=== PATIENT | male | born 1985 | race Two or more races ===

== ENCOUNTER 2020-02-27 18:10 | Emergency (ER) | payer SELFPAY ==
[~2020-02-27] VITALS: Ht 177.8 cm; Wt 88.0 kg
[2020-02-27 18:20] VITALS: BP 142/85
--- NOTE | 2020-02-27 19:38 | NUR ---
Assumed care of patient. [employer] services used. C/O occasional subjective fever in the middle of the night. Reports one episode of ABD pain on Monday. Denies SOB, cough, HARRIS, N/V/D, and ABD pain at this time. NAD. VSS. Will continue to monitor.
--- NOTE | 2020-02-27 19:40 | NUR ---
Patient states [place] from [place] approxiately 1 month ago. He is here visiting family. Per patient, he has been unable to go back to [place] d/t current travel restrictions.
--- NOTE | 2020-02-27 20:01 | NUR ---
Resting in [facility]. No needs.
[2020-02-27] MEDS ORDERED: AZITHROMYCIN 500 MG TABLET ONE (20:36)
--- NOTE | 2020-02-27 20:56 | NUR ---
Patient/Caregiver given discharge instructions and they have confirmed that they understand the instructions. Patient ambulatory with steady gait.
[2020-02-27] MEDS ORDERED: AZITHROMYCIN 500 MG TABLET PO ONE (21:00)
== END 2020-02-27 20:57 | disposition home or self-care (01) ==
LOC: ED 18:56
DX: J15.9 Unspecified bacterial pneumonia (principal); R10.9 Unspecified abdominal pain; R05 Cough; R00.0 Tachycardia, unspecified
CPT/HCPCS: 71045; 99283